=== PATIENT | male | born 1945 | race Caucasian/White ===

== ENCOUNTER 2020-02-13 09:51 | Day surgery (SDC) | payer MEDICARE, BC ==
[~2020-02-13] VITALS: Ht 177.8 cm; Wt 78.2 kg
--- NOTE | ~2020-02-13 | OP ---
PATIENT NAME: KALEB LICONA MEDICAL RECORD: [id number] :43 LOCATION:D[facility] ADMISSION DATE: SURGEON: ALLEY MURRY MD DATE OF OPERATION: 02/13/2020 PROCEDURE: EGD with biopsy. REFERRING PHYSICIAN: Kaleb Lester. INDICATIONS: Mr. Licona is a pleasant 74-year-old gentleman with a history of GE reflux and early Guillen's esophagitis. He presents for outpatient surveillance. He has been taking Nexium 40 mg a day with good control of his reflux symptoms. If he discontinues the Nexium, he develops recurrent symptoms. He presents for outpatient surveillance EGD. PREMEDICATIONS: Total IV anesthesia (propofol 250 mg). INSTRUMENT: Olympus video gastroscope. PROCEDURE AND FINDINGS: After receiving informed consent, Mr. Licona's posterior pharynx was anesthetized with Cetacaine spray, placed in left lateral decubitus position, sedated as per anesthesia. After achieving an adequate level of sedation, gastroscope was introduced per orally and advanced into the duodenum without difficulty. The esophageal mucosa was notable for slight irregularity at the GE junction. There was a slight irregularity of the Z line (GE junction) and biopsies were taken from the distal third of the esophagus. A small hiatal hernia is present. Gastric mucosa was notable for mild prepyloric erythema and antral biopsies were obtained to rule out Helicobacter pylori. No lesions were seen. The mucosa of the cardia, fundus and body of the stomach appeared normal. The pylorus was patent and competent. Duodenal mucosa was without erythema or ulcers and appeared normal to the third portion. The gastroscope was then withdrawn. Mr. Licona tolerated the procedure well, no immediate complications. ASSESSMENT: 1. Mild esophagitis secondary to gastroesophageal reflux, status post esophageal biopsy. 2. Small hiatal hernia. 3. Mild gastritis. RECOMMENDATIONS: 1. Follow up histopathology. 2. Reflux precautions. 3. Nexium 40 mg daily. 4. Surveillance EGD in 3 years. TRANSINT:[id number] Voice Confirmation ID: [id number] DOCUMENT ID: [id number] OPERATIVE REPORT [id number] KALEB LICONA ALLEY MURRY MD CC: KALEB LESTER MD [id number] DICTATION DATE: 02/13/20 1216 NITROCELLULOSE OPERATOR: 02/13/20 1619 [facility] 02/13/20 [facility] [address] [place] [address]
[2020-02-13 10:50] LABS: HEMATOCRIT 42.1 % (42.0-54.0); MCH 29.8 pg (26.0-34.0); MCHC 33.3 g/dL (31.0-37.0); MCV 89.6 fL (80.0-100.0); MEAN PLATELET VOLUME 9.7 fL (7.4-10.4); RBC 4.7 10x6/uL (4.20-6.10); RDW 12.4 % (11.5-14.5); WBC 4.7 10x3/uL (4.8-10.8)
[2020-02-13] MEDS ORDERED: CO Q-1030 MG PO (11:14)
[2020-02-13] MEDS ORDERED: PRAVACHOL20 MG PO (11:14)
[2020-02-13] MEDS ORDERED: CENTRUM MEN'S1 EACH PO (11:14)
[2020-02-13 11:24] VITALS: BP 122/82; Ht 177.8 cm; Wt 78.2 kg
[2020-02-13] MEDS ORDERED: NEXIUM20 MG PO (11:28)
--- NOTE | 2020-02-13 14:08 | NUR ---
1320 DR MURRY AT BEDSIDE TALKING WITH PT ABOUT PROCEDURE FINDINGS. 1322 IV DC'D. CATHETER TIP INTACT. NO BLEEDING AT SITE. BANDAID APPLIED. REVIEWED DISCHARGE INSTRUCTIONS AND PT VOICES UNDERSTANDING OF INSTRUCTIONS. PT IS WAITING FOR HIS DIRECTOR OF OPTIMIZATION TO ARRIVE AT HOSPITAL. 1352 PT'S DIRECTOR OF OPTIMIZATION HERE AND PT IS READY FOR DISCHARGE HOME
== END 2020-02-13 13:52 | disposition home or self-care (01) ==
LOC: D.OPS 09:51
PROVIDERS: Anesthesiology; ATTEND Internal Medicine Gastroenterology
DX: K21.0 Gastro-esophageal reflux disease with esophagitis (principal); K29.70 Gastritis, unspecified, without bleeding; K44.9 Diaphragmatic hernia without obstruction or gangrene